=== PATIENT | female | born 1980 | race Caucasian/White ===

== ENCOUNTER 2024-09-19 14:12 | Outpatient (CLI) | payer OTHER | END 2024-09-19 14:13 | disposition home or self-care (01) | LOC: BICRAD 14:12 | PROVIDERS: ATTEND Pharmacy Technician | DX: M54.16 Radiculopathy, lumbar region (principal); M51.379 Other intervertebral disc degeneration, lumbosacral region without mention of lumbar back pain or lower extremity pain | CPT/HCPCS: 72100 ==